=== PATIENT | male | born 1975 | race African-American/Black ===

== ENCOUNTER 2023-07-03 09:54 | Outpatient (CLI) | payer OTHER, SELFPAY ==
--- NOTE | 2023-07-04 08:39 | WPDPFTINT ---
PFT Procedure Performed PFT Procedure Performed Spirometry with Pre/Post Bronchodilator Plethysmography (Lung Vol) Diffusing Cap (DLCO) Flow Vol Loop PFT Interpretation Lung volumes were measured with the body plethysmography method. Lung volumes are unremarkable. Spirometry showed normal expiratory flow rates and a normal FEV1 to FVC ratio 77%. Following administration of a bronchodilator there was no significant increase in the expiratory flow rates. Lung diffusion capacity is normal at 73% predicted. The flow-volume loop is unremarkable. Impression: Spirometry, lung volumes, lung diffusion capacity all within the normal range.
--- NOTE | 2023-07-04 08:41 | WPDSIXMINUTE ---
Six Minute Walk Procedure Procedure Performed Pulmonary Stress Test (6 min walk) Six Minute Walk Six Minute Walk: This 6 minute walk test was carried out with the patient breathing ambient air. The baseline pre-walk oxyhemoglobin saturation was 98%. The patient walked 381 m with no stops during testing. During the walk the oxyhemoglobin saturation remained 95% or higher. Impression: No evidence of oxyhemoglobin desaturation on this testing.
== END 2023-07-03 09:55 | disposition home or self-care (01) ==
LOC: ANHPFT 09:56
PROVIDERS: PCP Internal Medicine Pulmonary Disease; Visit Provider Internal Medicine Pulmonary Disease
DX: R06.00 Dyspnea, unspecified (principal)
CPT/HCPCS: 94060; 94618; 94726; 94729

== ENCOUNTER 2023-10-12 11:35 | Outpatient (CLI) | payer OTHER, SELFPAY ==
--- NOTE | ~2023-10-12 | CT_ITS ---
CT Scan of the Chest without Contrast: Clinical Indication: Abnormal findings of diagnostic imaging, abnormal prior CT Technique: Contiguous sections were acquired throughout the chest without intravenous contrast. Dose reduction technique was used on this scan by utilizing automated exposure control and iterative recon struction technique. The dose-length product (DLP) was 250.99 mGy-cm. COMPARISON: Outside exam dated 04/23/2023 Findings: There is no evidence of any significant mediastinal, hilar or axillary lymphadenopathy. The mediastin al soft tissues appear normal. There is no evidence of pleural or pericardial effusion. There is stable appearing left apical/anterior left upper lobe scarring. Stable 3 mm right lower lobe pulmonary nodule. Images through the upper abdomen reveal no abnormalities. Impression: Stable probable left upper lobe/apical scarring. Stable 3 mm right lower lobe pulmonary nodule. Reviewed, dictated and finalized at [facility]. [employer] Impression: Stable probable left upper lobe/apical scarring. Stable 3 mm right lower lobe pulmonary nodule.
== END 2023-10-12 11:36 | disposition home or self-care (01) ==
LOC: ANHIMG 11:41
PROVIDERS: Visit Provider Internal Medicine Pulmonary Disease
DX: R93.89 Abnormal findings on diagnostic imaging of other specified body structures (principal); R91.1 Solitary pulmonary nodule
CPT/HCPCS: 71250

== ENCOUNTER 2024-04-02 08:49 | Outpatient (CLI) | payer OTHER, SELFPAY ==
--- NOTE | 2024-04-25 18:18 | WPDSLEEPSTUD ---
Sleep Study Date of Study: 04/02/24 Ordering Provider: Espinoza Marshall MD Interpreting Physician: Radha Campbell MD Sleep Study Type: Polysomnogram Height: 1.83 m Weight: 84.822 kg Body Mass Index: 25.3 Neck Circumference (inches): 16 [place]: 3 Reason for Sleep Study Mild obstructive sleep apnea; he is having a basic PSG with his Dream[employer]ap oral appliance Sleep History Agustin Martinez is a 49 year-old man with a history of mild obstructive sleep apnea in 2020. There is a family history of sleep disorders, his father has obstructive sleep apnea. The patient wakes up during the night. He rarely awakens from sleep feeling short of breath. He never wakes at night with heartburn, belching or coughing.??He rarely snores loudly enough that others complain. He rarely has trouble sleeping when he has a cold. He never wakes up gasping for breath during the night. He never has breathing problems at night. He never sweats excessively at night. He never notices his heart pounding or beating irregularly during the night. He rarely falls asleep during the day. He never falls asleep involuntarily, never falls asleep while driving. He never experiences loss of muscle tone with strong emotion. He never has daytime difficulty at work due to excessive sleepiness. He never feels paralyzed on waking or falling asleep. He never experiences vivid dreams upon waking or falling asleep. He never feels afraid of going to sleep. He never has nightmares. He rarely recalls his dreams. He rarely has thoughts racing through his mind. He never feels sad, depressed, or anxious. He never notices parts of his body jerk. He never kicks during the night. He occasionally feels crawling or aching feelings in his legs. He never feels leg pain at night. He rarely has morning jaw pain, rarely grinds his teeth at night. He rarely feels bothered by pain during the day, never awakened by pain during the night. He rarely wakes up feeling stiff in the morning, and he rarely wakes feeling sore or achy. He occasionally awakens with pain in his neck, spine, or joints. He has fatigue and sexual problems. Normal bedtime is 11:00 p.m., falling asleep quickly, waking once at night. While awake at night, he watches television. Once he wakes during the night, he does not return to sleep. Wake time is between 3:00 a.m. and 4:00 a.m.. He typically gets 6-1/2 hours of sleep per night. He keeps the same schedule on weekends. He does not nap in the afternoon or evening. Most of the time he feels drowsy for 1 hour after waking. He feels better in the morning compared to other times of day. He rarely has morning headaches. He rarely awakens feeling refreshed. He occasionally has daytime sleepiness, memory or concentration problems and occasionally has job related problems due to excessive sleepiness. Habits:??Tobacco: Never smoker Caffeine: None. Alcohol: Rare Recreational substances: None [facility] Past Medical History Medical History (Updated 04/25/24 @ 18:53 by Radha Campbell MD) ALMA (obstructive sleep apnea) Social History Social History Smoking status: Never smoker Tobacco type: cigars Alcohol intake: current Alcohol use details: Drinks socially maybe 3 a month. Medications Home Medications Medication Instructions Recorded Confirmed Type eszopiclone 2 mg tablet 2 mg PO QHS #1 tablet 01/03/24 01/03/24 Rx Sleep Procedure A full night polysomnogram using the [employer] Only SleepRayn multi-channel system recorded the standard physiologic parameters including EEG, EOG, submentalis EMG, anterior tibialis EMG, EKG, body position, nasal and oral airflow using nasal pressure sensor and thermistor. Respiratory parameters of chest and abdominal movements were recorded with Respiratory Inductance Plethysmography belts. Oxygen saturation was recorded by pulse oximetry. Video monitoring was also performed. Sleep
[2024-04-25 18:28] VITALS: BMI 25.3
--- NOTE | 2024-04-25 19:24 | P.SLEEP_ITS ---
ON LICENSE OF [facility] Past Medical History Medical History (Updated 04/25/24 @ 18:53 by Radha Campbell MD) ALMA (obstructive sleep apnea) Social History Social History Smoking status: Never smoker Tobacco type: cigars Alcohol intake: current Alcohol use details: Drinks socially maybe 3 a month. Medications Home Medications Medication Instructions Recorded Confirmed Type eszopiclone 2 mg tablet 2 mg PO QHS #1 tablet 01/03/24 01/03/24 Rx
[2024-04-25 19:27] VITALS: BMI 25.3
== END 2024-04-03 07:35 | disposition home or self-care (01) ==
LOC: ANHCSM 08:50
PROVIDERS: Visit Provider Internal Medicine Pulmonary Disease
DX: G47.33 Obstructive sleep apnea (adult) (pediatric) (principal)
CPT/HCPCS: 95810; 95811